=== PATIENT | male | born 1990 | race Caucasian/White ===

== ENCOUNTER 2019-03-14 12:00 | Inpatient (IN) ==
[2019-03-14 12:47] LABS: BASO# 0.05 X1000 (0.0-0.2); BASO% 0.8 % (0.0-0.8); EOS# 0.12 X1000 (0.0-0.7); HEMATOCRIT 46.1 % (42.0-52.0); HEMOGLOBIN 16.3 g/dL (14.0-18.0); IMM GRAN# 0.01 X1000 (0.0-0.04); IMM GRAN% 0.2 % (0.0-0.5); LYMPH# 2.11 X1000 (1.2-3.4); LYMPH% 34.5 % (20.5-51.1); MCH 31.2 PG (27-31); MCHC 35.4 g/dL (33-37); MCV 88.1 FL (81-99); MONO# 0.63 X1000 (0.11-0.59); MONO% 10.3 % (1.7-9.3); MPV 9.3 FL (7.4-10.4); NEUT% 52.2 % (42.2-75.2); PLT 321 X1000 (130-400); RBC 5.23 XMIL (4.7-6.1); RDW 12.2 % (11.5-14.5); WBC 6.12 X1000 (4.8-10.8)
[2019-03-14 12:52] LABS: UR AMPHETAMINES QUAL NONE DETECTED (NONE DETECT); UR BARBITUATES QUAL NONE DETECTED (NONE DETECT); UR BENZODIAZEPIN QUAL NONE DETECTED (NONE DETECT); UR CANNABINOIDS QUAL PRESUMPTIVE POSITIVE (NONE DETECT); UR COCAINE QUAL NONE DETECTED (NONE DETECT); UR METHADONE QUAL NONE DETECTED (NONE DETECT); UR METHAMPHETAMINE QUAL NONE DETECTED (NONE DETECT); UR OPIATES QUAL NONE DETECTED (NONE DETECT); UR OXYCODONE QUAL NONE DETECTED (NONE DETECT); UR PCP QUAL NONE DETECTED (NONE DETECT); UR PROPOXYPHENE QUAL NONE DETECTED (NONE DETECT); UR TCA QUAL NONE DETECTED (NONE DETECT)
[2019-03-14 13:08] LABS: ACETAMINOPHEN 46.6 ug/mL (10-30); AGAP 14; ALBUMIN 4.8 g/dL (3.5-5.0); ALKALINE PHOSPHATASE 62 U/L (32-122); BUN 13 mg/dL (8-22); CALCIUM 9.2 mg/dL (8.8-10.2); CHLORIDE 105 mmol/L (98-107); COSMO 281; CREATININE 0.8 mg/dL (0.7-1.2); ESTIMATED GFR > 60; GLUCOSE 97 mg/dL (70-104); GOT 23 U/L (10-34); GPT 18 U/L (10-44); POTASSIUM 3.7 mmol/L (3.5-5.1); SALICYLATES < 3.00 mg/dL (3-10); SODIUM 141 mmol/L (136-145); TCO2 22 mmol/L (25-35); TOTAL PROTEIN 7.6 g/dL (6.3-8.3)
[2019-03-14] MEDS ORDERED: D5W IV ONE ×7 (13:27→19:00)
[2019-03-14] MEDS ORDERED: ACETADOTE IV ONE ×7 (13:27→19:00)
--- NOTE | 2019-03-14 13:29 | PROVIDER DOCUMENTATION ---
[facility] Abuse/Overdose - General Chief Complaint: Psych Stated Complaint: PSYCH / OD Time Seen by Provider: 03/14/19 13:20 Source: patient Allergies/Adverse Reactions: Allergies Allergy/AdvReac Type Severity Reaction Status Date / Time No Known Allergies Allergy Verified 03/14/19 12:09 Home Medications: Home Medication List Medication Instructions Recorded Confirmed Last Taken Type Albuterol Sulfate [Albuterol 2 puff INH Q4-6H PRN PRN 06/07/17 06/07/17 Unknown History Sulfate Hfa] Budesonide Inhaler [Pulmicort 1 puff INH RTBID 06/07/17 06/07/17 Unknown History Flexhaler] Cyclobenzaprine [Flexeril] 10 mg PO TID #20 tablet 06/07/17 Unknown Rx Diclofenac Na D.r. [Voltaren] 50 mg PO 4XDAY #20 tab 06/07/17 Unknown Rx Sertraline [Zoloft] 50 mg PO DAILY 06/07/17 06/07/17 06/06/17 08:00 History - History of Present Illness-Drug/Alcohol Nature of Presenting Problem: 28 YOM PRESENTS WITH C/O ATTEMPTED SUICIDE VIA TYLENOL INTAKE. HE REPORTS TAKING 30-35 TYLENOL 500 MG AND A BOTTLE OF NYQUIL AT 4 AM THIS MORNING. HE BEGAN 36 HOURS AGO. HE C/O ABDOMINAL PAIN AND NAUSEA Psychiatric Complaints: reports: suicidal ideation Associated Symptoms: reports: nausea Any injuries associated with this episode of intoxication?: No Similar Symptoms Previously?: No Recently seen or treated by another doctor?: No - Substance Abuse Substance Use: reports: marijuana - Overdose Intentional drug overdose?: Yes List substance(s) ingested.: tylenol How did the ingestion/other suicidal act come to attention?: patient reported Suicide Risk Assessment: male sex, depressed, prior attempt, drug or ETOH abuse, organized plan Clinician's estimation of suicide risk?: high risk Review of Systems - Adult - REVIEW OF SYSTEMS - ADULT Constitutional: reports: no symptoms reported. denies: see HPI, chills, fever, fatique, night sweats, weight gain, weight loss, other Eyes: reports: no symptoms reported. denies: see HPI, discharge, dry eyes, decreased vision, blurred vision, double vision, eye pain, redness, other Ears, Nose, Mouth & Throat: reports: no symptoms reported. denies: see HPI, ear discharge, ear pain, hearing loss, tinnitus, epistaxis, sinus problem, nose pain, loose teeth, mouth/dental pain, mouth swelling, hoarseness, throat pain, throat swelling, other Cardiovascular: reports: no symptoms reported. denies: see HPI, chest pain, edema, heart murmur, irregular heart rate, orthopnea, palpitations, poor circulation, PND, syncope, other Respiratory: reports: no symptoms reported. denies: see HPI, chronic cough, cough, dyspnea on exertion, excessive sputum production, hemoptysis, pleurisy, shortness of breath, wheezing, other Gastrointestinal: reports: abdominal pain, nausea. denies: no symptoms reported, see HPI, hematemesis, constipation, diarrhea, difficulty swallowing, frequent heartburn, poor appetite, rectal bleeding, vomiting, other Genitourinary: reports: no symptoms reported. denies: see HPI, dysuria, d ischarge, frequency, flank pain, frequent UTI's, hematuria, hesitency, incontinence, urinary retention, urgency, other Musculoskeletal: reports: no symptoms reported. denies: see HPI, bone pain, back pain, frequent leg cramps, joint pain, joint swelling, muscle aches, muscle weakness, neck pain, other Integumentary: reports: no symptoms reported. denies: see HPI, hives, hair loss, itching, mole changes, nail changes, rash, skin sores/ulcer, skin thickening, other Neurological: reports: no symptoms reported. denies: see HPI, ataxia, dizziness/vertigo, headache/migraines, loss of balance, numbness, paresthesia, seizure, slurred speech, syncope, tremors, other Psychiatric: reports: no symptoms reported. denies: see HPI, anxiety, anti- depressant use, alcohol/drug dependence, depression, emotional problems, insomnia, panic attacks, suicidal thoughts, other Endocrine: reports: no symptoms reported. denies: see HPI, change in skin pigment, excessive sweating, goiter, cold intolerance, heat intolerance, increased hunger, increased thirst, polyuria, other Hematologic/Lymphatic: reports: no symptoms reported. denies: see HPI, blood clots, easy bruising, low blood count, lymphedema, prolonged bleeding, swollen lymph nodes, transfusions, other Allergic/Immunologic: reports: no symptoms reported. denies: see HPI, allergic reactions, allergic rhinitis, asthma, eczema, food allergy, frequent infections, hay fever, hives, positive PPD, urticaria, other Past History - Adult - PAST MEDICAL HISTORY-ADULT Review of Records: reports: Nursing Assessment Review, Social history reviewed & non-contributory. Major Childhood Illnesses: reports: denies history Cardiovascular: reports: denies history Respiratory: reports: denies history Gastrointestinal: reports: denies history Obstetrical/Gynecological: reports: denies history Genitourinary: reports: denies history Musculoskeletal: reports: denies history. denies: neck/back injury Neurological: reports: denies history Psychiatric: reports: denies history Endocrine/Immune: reports: denies history Other Conditions: reports: denies history - PRIOR SURGERIES/PROCEDURES Surgical/Procedure History: reports: none - IMMUNIZATION STATUS Childhood Immunizations: See Nurse Assessment Flu Vaccine: See Nurse Assessment - FAMILY HISTORY Family History: reviewed, not pertinent Physical Exam-General - PHYSICAL EXAM-ADULT Initial Vital Signs Reviewed: Yes - CONSTITUTIONAL General Appearance: appears well, alert, no apparent distress - EYES Eyes: PERRL/EOMI - HEAD, EARS, NOSE, MOUTH & THROAT HENMT: normocephalic/atraumatic, moist mucous membranes, normal ENT inspection - NECK Neck: non-tender, full range of motion, supple - RESPIRATORY Respiratory: chest non-tender, lungs clear, normal breath sounds, no pleuratic chest pain, no respiratory distress, no accessory muscle use - CARDIOVASCULAR Cardiovascular: normal peripheral pulses, regular rate, rhythm, no edema, no gallop, no JVD, no murmur - GASTROINTESTINAL (ABDOMEN) Abdominal Exam: normal bowel sounds, non tender, soft - LYMPHATIC Lymphatic: no adenopathy - MUSCULOSKELETAL Back Exam: normal inspection, no CVA tenderness, no vertebral tenderness Extremity: normal range of motion, non-tender, normal gait - SKIN Integumentary: normal color, normal turgor, warm/dry - NEUROLOGIC Neurologic: grossly normal - PSYCHIATRIC Psych/Mental Status: normal mood/affect, oriented x 3 Progress - PLAN OF CARE/RESULTS Progress/Plan/Lab Results: Vital Signs - 8 hr 03/14/19 12:04 Temperature 98.3 F Pulse Rate 81 Respiratory Rate 20 Blood Pressure 163/97 O2 Sat by Pulse Oximetry 98 Laboratory Results - last 24 hr 03/14/19 03/14/19 03/14/19 12:17 12:38 12:38 WBC 6.12 RBC 5.23 Hgb 16.3 Hct 46.1 MCV 88.1 MCH 31.2 H MCHC 35.4 RDW Std Deviation 12.2 Plt Count 321 MPV 9.3 Immature Gran % (Auto) 0.2 Neut % (Auto) 52.2 Lymph % (Auto) 34.5 Billings % (Auto) 10.3 H Eos % (Auto) 2.0 Baso % (Auto) 0.8 Immature Gran # (Auto) 0.01 Neut # (Auto) 3.20 Lymph # (Auto) 2.11 Billings # (Auto) 0.63 H Eos # (Auto) 0.12 Baso # (Auto) 0.05 Sodium Potassium Chloride Carbon Dioxide Anion Gap BUN Creatinine Estimated GFR/1.73 m2 BUN/Creatinine Ratio Glucose Calculated Osmolality Calcium Total Bilirubin AST ALT Alkaline Phosphatase Total Protein Albumin Globulin Albumin/Globulin Ratio Salicylates Urine Opiates Screen NONE DETECTED Ur Oxycodone Screen NONE DETECTED Urine Methadone Screen NONE DETECTED U Propoxyphene Qual NONE DETECTED Acetaminophen Ur Barbituates Screen NONE DETECTED Ur Tricyclics Screen NONE DETECTED Ur Phencyclidine Scrn NONE DETECTED Ur Amphetamines Screen NONE DETECTED U Methamphetamines Scrn NONE DETECTED U Benzodiazepines Scrn NONE DETECTED Urine Cocaine Screen NONE DETECTED U Cannabinoids Screen PRESUMPTIVE POSITIVE A Plasma/Serum Ethyl Alc 03/14/19 12:38 WBC RBC Hgb Hct MCV MCH MCHC RDW Std Deviation Plt Count MPV Immature Gran % (Auto) Neut % (Auto) Lymph % (Auto) Billings % (Auto) Eos % (Auto) Baso % (Auto) Immature Gran # (Auto) Neut # (Auto) Lymph # (Auto) Billings # (Auto) Eos # (Auto) Baso # (Auto) Sodium 141 Potassium 3.7 Chloride 105 Carbon Dioxide 22 L Anion Gap 14 BUN 13 Creatinine 0.8 Estimated GFR/1.73 m2 > 60 BUN/Creatinine Ratio 16 Glucose 97 Calculated Osmolality 281 Calcium 9.2 Total Bilirubin 0.70 AST 23 ALT 18 Alkaline Phosphatase 62 Total Protein 7.6 Albumin 4.8 Globulin 3.0 Albumin/Globulin Ratio 2.0 Salicylates < 3.00 L Urine Opiates Screen Ur Oxycodone Screen Urine Methadone Screen U Propoxyphene Qual Acetaminophen 46.6 H Ur Barbituates Screen Ur Tricyclics Screen Ur Phencyclidine Scrn Ur Amphetamines Screen U Methamphetamines Scrn U Benzodiazepines Scrn Urine Cocaine Screen U Cannabinoids Screen Plasma/Serum Ethyl Alc Orders Category Date Time Status Consult for Inpt Psych Tx As Directed Care 03/14/19 12:14 Active Initiate Psych Med Clear.Carlos As Directed Care 03/14/19 12:14 Active ACETAMINOPHEN [TDM] Stat Lab 03/14/19 12:38 Completed ALCOHOL BLOOD Stat Lab 03/14/19 12:38 Completed CBC WITH ELECTRONIC DIFF [HEME] Stat Lab 03/14/19 12:38 Completed CMP [COMPREHENSIVE METABOLIC PANEL] [CHEM] Stat Lab 03/14/19 12:38 Completed SALICYLATES [TDM] Stat Lab 03/14/19 12:38 Completed URINE DRUG SCREEN PL Stat Lab 03/14/19 12:17 Completed Acetylcysteine [Acetadote] 0 mg Med 03/14/19 13:27 Discontinued Dextrose 5%-Water Inj [D5w] 500 ml IV ONCE Acetylcysteine [Acetadote] 11,500 mg Med 03/14/19 13:28 Discontinued Dextrose 5%-Water Inj [D5w] 200 ml IV ONCE Acetylcysteine [Acetadote] 3,850 mg Med 03/14/19 14:45 Active Dextrose 5%-Water Inj [D5w] 500 ml IV ONCE Psychiatric Clearance (Initial) Stat Oth 03/14/19 12:12 Ordered EKG [EKG] Stat Ther 03/14/19 13:45 Ordered Result Diagrams: 03/14/19 12:38 03/14/19 12:38 - CONSULTS/PCP/HOSPITALIST Notification #1 *Consult/PCP/Hospitalist*: SPOKE WITH HOSPITALIST GAS DISPATCHER Time Discussed: 14:20 Consult Disposition: Admit Departure - Departure Date of Disposition Decision: 03/14/19 Time of Disposition Decision: 14:36 DIAGNOSIS: Tylenol overdose, Suicide attempt DIAGNOSIS: (Ruled Out): Tylenol ingestion Disposition: HOME 01 Certified Medical Emergency: Emergent Condition: Stable Referrals and Follow-Ups: Michael Bates DO [Primary Care Provider] - - Critical Care Note This patient required my direct & personal management of CC.: No Attestation - Physician/ RADU Attestation Patient care was provided by Advanced Practice Provider:: Yes Advanced Practice Provider:: Jackie Da Silva Advanced Practice Provider documentation review:: The Mid-level provider documentation, treatment plan and medical decision making was reviewed by the physician who agrees with all treatment and medical decision making by the MLP. The physician spent face to face time with patient:: No Advanced Practice Provider documentation review:: Supervising physician onsite and consulted in the evaluation and care of this patient. The physician did not have a face to face encounter with the patient.
[2019-03-14] MEDS ORDERED: ZOFRAN IV PRN ×2 (15:29→17:09)
--- NOTE | 2019-03-14 16:04 | HISTORY AND PHYSICAL ---
CHIEF COMPLAINT: Intentional suicide attempt with Tylenol overdose. HISTORY OF PRESENT ILLNESS: The patient is a 28-year-old male who admits that he just wants to . He started taking Tylenol and reports he has taken between 30 and 35 of 500 mg Tylenol over the past 24 to 36 hours. He also took a bottle of NyQuil around 4 a.m. this morning. Currently, he is complaining of abdominal pain and nausea. ALLERGIES: No known drug allergies. MEDICATIONS: He has a history of taking Symbicort and albuterol, although he denies any current medications. SOCIAL HISTORY: Patient lives at home. He does use marijuana. FAMILY HISTORY: Noncontributory. PAST MEDICAL HISTORY: Significant for asthma and depression. REVIEW OF SYSTEMS: Difficult to obtain as Mr. Henry is not interested in answering questions currently. However, he does deny any fevers, chills, cough, congestion, or other infectious type symptoms. Denies any chest pain. Does have abdominal pain, diarrhea, melena, hematochezia. PHYSICAL EXAMINATION: VITAL SIGNS: Reviewed. Temperature 98 degrees, pulse of 81, respiratory rate 20, BP 163/97. GENERAL: Patient is awake, alert. He is in no current respiratory distress. HEENT: Normocephalic. NECK: Supple. CARDIOVASCULAR: Regular rate. CHEST: Clear and unlabored. ABDOMEN: Soft, nondistended. EXTREMITIES: Moves all extremities. NEUROLOGIC: He is awake, alert, and oriented x3. LABS: CBC normal. CMP normal currently. Tylenol level at 46. ASSESSMENT: 1. Tylenol overdose. 2. Intentional suicide attempt. 3. History of asthma. 4. History of depression. PLAN: We will admit the patient to the hospital. We have notified Poison Control and we will continue protocol per them. We will continue to follow. We will recheck his Tylenol level and continue [*] as needed. Once he is stabilized, then we will consult [facility] for further psychiatric care. cc: Sawyer Beltran MD
--- NOTE | 2019-03-14 16:20 | EKG Report ---
Test Performed on : 03/14/2019 3:31:04 PM Test Reason : CP Blood Pressure : / mmHG Vent. Rate : 060 BPM Atrial Rate : 060 BPM P-R Int : 212 ms QRS Dur : 094 ms QT Int : 410 ms P-R-T Axes : 056 032 039 degrees QTc Int : 410 ms Sinus rhythm. with 1st degree AV block. Otherwise normal ECG No previous ECGs available Unconfirmed Result
[2019-03-14 20:52] LABS: INR 1.08; PROTIME 14.6 Seconds (11.0-16.0)
[2019-03-14 20:59] LABS: AGAP 14; ALBUMIN 4.3 g/dL (3.5-5.0); ALKALINE PHOSPHATASE 53 U/L (32-122); BUN 10 mg/dL (8-22); CALCIUM 8.7 mg/dL (8.8-10.2); CHLORIDE 104 mmol/L (98-107); COSMO 284; CREATININE 0.6 mg/dL (0.7-1.2); ESTIMATED GFR > 60; GLUCOSE 163 mg/dL (70-104); GOT 20 U/L (10-34); GPT 16 U/L (10-44); PHOSPHORUS 2.6 mg/dL (2.7-4.5); POTASSIUM 3.1 mmol/L (3.5-5.1); SODIUM 141 mmol/L (136-145); TCO2 23 mmol/L (25-35); TOTAL PROTEIN 6.9 g/dL (6.3-8.3)
[2019-03-15 05:14] LABS: BASO# 0.06 X1000 (0.0-0.2); BASO% 0.6 % (0.0-0.8); EOS# 0.31 X1000 (0.0-0.7); EOS% 3.1 % (0.0-10.0); HEMATOCRIT 45.6 % (42.0-52.0); HEMOGLOBIN 15.7 g/dL (14.0-18.0); IMM GRAN# 0.02 X1000 (0.0-0.04); IMM GRAN% 0.2 % (0.0-0.5); LYMPH% 26.1 % (20.5-51.1); MCH 30.5 PG (27-31); MCHC 34.4 g/dL (33-37); MCV 88.7 FL (81-99); MONO# 0.83 X1000 (0.11-0.59); MONO% 8.3 % (1.7-9.3); MPV 9.6 FL (7.4-10.4); NEUT# 6.15 X1000 (1.4-6.5); NEUT% 61.7 % (42.2-75.2); PLT 275 X1000 (130-400); RBC 5.14 XMIL (4.7-6.1); RDW 12.3 % (11.5-14.5); WBC 9.97 X1000 (4.8-10.8)
[2019-03-15 05:44] LABS: POTASSIUM 3.9 mmol/L (3.5-5.1); SODIUM 141 mmol/L (136-145)
[2019-03-15 05:45] LABS: AGAP 11; BUN 9 mg/dL (8-22); CALCIUM 8.4 mg/dL (8.8-10.2); CHLORIDE 104 mmol/L (98-107); COSMO 281; CREATININE 0.9 mg/dL (0.7-1.2); ESTIMATED GFR > 60; GLUCOSE 110 mg/dL (70-104); TCO2 26 mmol/L (25-35)
[2019-03-15] MEDS ORDERED: MOTRIN PO PRN ×2 (08:34→09:04)
[2019-03-15 11:13] LABS: AGAP 12; BUN 7 mg/dL (8-22); CHLORIDE 106 mmol/L (98-107); COSMO 283; CREATININE 0.8 mg/dL (0.7-1.2); GLUCOSE 107 mg/dL (70-104); POTASSIUM 3.4 mmol/L (3.5-5.1); SODIUM 143 mmol/L (136-145); TCO2 25 mmol/L (25-35)
[2019-03-15 11:14] LABS: ALB/GLOB RATIO 1.8; ALBUMIN 4.4 g/dL (3.5-5.0); ALKALINE PHOSPHATASE 57 U/L (32-122); CALCIUM 8.7 mg/dL (8.8-10.2); DIRECT BILIRUBIN < 0.10 mg/dL (0.00-0.20); GOT 17 U/L (10-34); GPT 15 U/L (10-44); TOTAL PROTEIN 6.8 g/dL (6.3-8.3)
[2019-03-15 11:45] LABS: ACETAMINOPHEN < 1.2 ug/mL (10-30)
[2019-03-16] MEDS: LEXAPRO PO SCH (10:06)
[2019-03-16] MEDS: KLONOPIN PO SCH ×2 (10:06→21:26)
--- NOTE | 2019-03-16 11:35 | PROGRESS NOTE ---
DATE: 03/16/2019 SUBJECTIVE: Patient reports feeling anxious. Denied any other complaints. OBJECTIVE: Vital Signs: Temperature is 98.1 degrees, heart rate 63, respiratory rate 18, blood pressure 119/76, O2 saturation 95% on room air. General Examination: This is a 28-year-old, male, lying in bed, in no acute distress. Cardiovascular Examination: S1 and S2 heard. No murmurs, gallops, or rubs. Regular rate and rhythm. Respiratory Examination: Clear bilaterally to auscultation. No work of breathing or using accessory muscles. Abdomen: Soft, nontender to palpation. Bowel sounds present. No organomegaly. Extremities: No clubbing cyanosis, or edema. Peripheral pulses present in both legs. Neurological Examination: The patient is alert and oriented x3. Moves 4 extremities. Laboratory Data: Reviewed. ASSESSMENT AND PLAN: 1. Tylenol overdose. That condition is resolved. We were following protocol for acetaminophen intoxication. We have called yesterday Poison Control and according to the labs, no more actions needed regarding that condition. 2. Intentional suicidal attempt. We have consulted [facility] and they refused to take this patient. Patient expressed his desire to go to a facility where he can be admitted for this condition. We do know that this patient does not have any insurance so at this point, I talked with Daniele, health care social worker, and we are going to explore all the options that this patient may have, that are really very limited. If there are no options for him on an inpatient basis, then we can let him go tomorrow with medications for depression. 3. History of asthma. Doing fine. No wheezing noted. cc: Keagan Hurtado MD MTDD
[2019-03-17] MEDS: LEXAPRO PO SCH (09:30)
[2019-03-17] MEDS: KLONOPIN PO SCH (09:32)
[2019-03-17 12:43] VITALS: BP 139/84
[2019-03-17] MEDS ORDERED: ZOLOFT PO SCH (21:00)
--- NOTE | 2019-03-18 06:59 | DISCHARGE SUMMARY ---
ADMISSION DATE: 03/14/2019 DISCHARGE DATE: 03/17/2019 DISCHARGE DISPOSITION: Home with sister. DISCHARGE CONDITION: Alert and oriented x3. He denies any active suicidal or homicidal ideation. He wants to go home with his sister rather than to a psychiatric facility. DISCHARGE DIAGNOSES: 1. Acetaminophen overdose. 2. Intentional suicide attempt. 3. Intermittent asthma, not in exacerbation. OTHER DIAGNOSES: 1. Depression. 2. Suspected NyQuil overdose. VITALS AT TIME OF DISCHARGE: Temperature of 97.6 degrees, pulse of 67, respiratory rate 22, blood pressure 140/84 and saturating 97% on room air. PHYSICAL EXAMINATION: General: Does not appear in acute distress. Oral cavity is moist. Lungs: Air entry bilaterally equal. No wheezing, rhonchi or crackles. Heart: S1, S2 normal. No murmur, rub or gallop. Abdomen: Soft, nontender. No lower extremity edema. Neurologic: He is alert and oriented x3. Psychiatric: His thought process is normal. His mood is normal. He appears pleasant. He is walking in the hallway without any discomfort. He denies any suicidal or homicidal ideation. We discussed about seeking him whenever he needs help. We also discussed about pathophysiology of depression and anxiety, and suicide attempt. We discussed about discharging him on Zoloft and following up with outpatient provider since the Zoloft had previously worked for him and he was able to afford it. LABORATORY: Labs during hospital admission, hemoglobin, hematocrit, and platelet were normal with hemoglobin of 15.7, INR of 1, potassium of 3.4, BUN of 7, and creatinine of 0.8. On admission, his acetaminophen level was 46.6, which had decreased to 7.7. Within 8 hours, he was given a dose of acetylcysteine intravenously. On 03/15 morning, his acetaminophen level was less than 1.2. SIGNIFICANT IMAGING DURING HOSPITAL ADMISSION: EKG did detect a normal sinus rhythm and first- degree AV block. HOSPITAL COURSE SUMMARY: Mr. Henry is a 28-year-old man who came in with active suicidal ideation. He reported to be taking Tylenol between 30 to 35 tablets of about 500 mg strength over 24 to 36 hours. He also took a bottle of NyQuil 6 hours prior to presentation. When he came in, he was complaining of nausea and abdominal pain. He was admitted for further management, and he was started on acetylcysteine for acetaminophen toxicity. He was also started on antianxiety medication, Lexapro and clonazepam. Initially, attempts were made to place him to inpatient psychiatry unit. [facility] had refused to take him. The patient did not have insurance so attempts were made to find another facility so that he can be discharged to a psychiatric hospital. However, later on, patient expressed that he did not have any more suicidal ideation since about 24 hours. He was feeling fine. He wanted to go home. We extensively discussed about continuing him on Zoloft which was changed from Lexapro because the patient had previously tolerated it well, and it was affordable to him. The patient understood it. Plan of care was discussed with the patient, and his sister at bedside. We discussed about seeking help whenever he had suicide ideation. TIME SPENT: More than 30 minutes were spent in discharging this patient. He along with his sister at bedside were counselled about his medical condition, treatment plan, how to seek help. I answered all of their questions. DISCHARGE MEDICATIONS: Sertraline 25 mg at nighttime, 30 tablets have been prescribed. FOLLOW UP: The patient was extensively counseled about following up with his regular doctor within next 3 to 5 days. cc: MD AYAN Smith
== END 2019-03-17 15:50 | disposition home or self-care (01) | DRG 918 ==
LOC: P.ED 12:00 → SUATTDRO 17:03 → EDIPHOLD 17:03 → ICU 22:44 → 3N 03-15 17:44
PROVIDERS: ATTEND Internal Medicine
CPT/HCPCS: 80048; 80053; 80104; 80196; 80301; 80305; 80307; 80320; 80324; 80329; 82003; 82055; 82248; 83605; 84100; 84443; 85025; 85610; 85730; 93005; 96365; 96366; 96368; 96375; 99285; A9270; G0431; G0434; G0477; G0480; G6038; G6039; G6040; J0132; J2405; J7060; J7070